=== PATIENT | male | born 1965 | race Caucasian/White ===

== ENCOUNTER 2018-04-19 01:10 | Outpatient (CLI) | payer BC, SELFPAY ==
[2018-04-19 07:35] LABS: Abs Immature Grans 0.01 k/cumm (0.0-0.09); Absolute Basophil Count 0.03 k/cumm (0.0-0.2); Absolute Lymphocyte Count 1.73 k/cumm (1.2-3.4); Absolute Monocyte Count 0.41 k/cumm (0.11-0.7); Absolute Neutrophil Count 2.56 k/cumm (1.2-6.7); Basophils % 0.6; HGB 14.6 g/dL (13.5-17.5); Immature Grans % 0.2; Mean Corp. HGB Concentration 34.8 g/dL (32.0-36.0); Mean Corpuscular Hemoglobin 32.5 pg (27.0-33.0); Mean Corpuscular Volume 93.5 fL (80-95); Mean Platelet Volume 10.6 fL (8.0-11.0); Monocytes % 8.3; Neutrophils % 51.9; Platelet Count 193 x1000/uL (130-400); RBC 4.49 m/cumm (4.50-6.00); RBC Distribution Width 12.4 % (11.8-14.1); White Blood Cell Count 4.94 k/cumm (4.4-10.8)
[2018-04-19 08:33] LABS: ALT 30 U/L (12-78); AST 16 U/L (15-37); Albumin 3.8 g/dL (3.4-5.0); Alkaline Phosphatase 55 U/L (46-116); C-Reactive Protein 0.07 mg/dL (0.0-0.3); CREATININE 1.16 mg/dL (0.70-1.30)
== END 2018-04-19 01:30 ==
PROVIDERS: PCP Family Medicine; Visit Provider Internal Medicine Rheumatology
DX: L40.59 Other psoriatic arthropathy (principal); Z79.899 Other long term (current) drug therapy
CPT/HCPCS: 36415; 82040; 82565; 84075; 84450; 84460; 85025; 86140

== ENCOUNTER 2018-11-18 16:06 | Outpatient (CLI) | payer BC, SELFPAY ==
[2018-11-18 16:40] LABS: Abs Immature Grans 0.01 k/cumm (0.0-0.09); Absolute Basophil Count 0.02 k/cumm (0.0-0.2); Absolute Eosinophil Count 0.15 k/cumm (0.0-0.7); Absolute Lymphocyte Count 1.74 k/cumm (1.2-3.4); Absolute Monocyte Count 0.44 k/cumm (0.11-0.7); Absolute Neutrophil Count 5.04 k/cumm (1.2-6.7); Basophils % 0.3; HCT 40.9 % (40.0-50.0); HGB 14.1 g/dL (13.5-17.5); Immature Grans % 0.1; Lymphocytes % 23.5; Mean Corp. HGB Concentration 34.5 g/dL (32.0-36.0); Mean Corpuscular Hemoglobin 32.6 pg (27.0-33.0); Mean Corpuscular Volume 94.7 fL (80-95); Mean Platelet Volume 10.3 fL (8.0-11.0); Monocytes % 5.9; Neutrophils % 68.2; Platelet Count 203 x1000/uL (130-400); RBC 4.32 m/cumm (4.50-6.00); RBC Distribution Width 12.9 % (11.8-14.1)
[2018-11-18 17:20] LABS: ALT 33 U/L (12-78); AST 15 U/L (15-37); Albumin 3.8 g/dL (3.4-5.0); Alkaline Phosphatase 53 U/L (46-116); Anion Gap 10.9 mmol/L (3-11); BUN 15 mg/dL (7-18); Bilirubin, Total 0.7 mg/dL (0.2-1.0); C-Reactive Protein 0.13 mg/dL (0.0-0.3); CO2 27.1 mmol/L (21.0-32.0); CREATININE 1.01 mg/dL (0.70-1.30); Calcium 8.9 mg/dL (8.5-10.1); Chloride 101 mmol/L (98-107); Glucose 98 mg/dL (70-100); Sodium 139 mmol/L (136-145); Total Protein 6.9 g/dL (6.4-8.2)
== END 2018-11-18 16:26 ==
PROVIDERS: PCP Family Medicine; Visit Provider Internal Medicine Rheumatology
DX: L40.50 Arthropathic psoriasis, unspecified (principal)
CPT/HCPCS: 36415; 80053; 85025; 86140

== ENCOUNTER 2019-06-06 13:12 | Outpatient (CLI) | payer BC, SELFPAY ==
[2019-06-06 16:02] LABS: Abs Immature Grans 0.02 k/cumm (0.0-0.09); Absolute Basophil Count 0.02 k/cumm (0.0-0.2); Absolute Lymphocyte Count 1.62 k/cumm (1.2-3.4); Absolute Monocyte Count 0.42 k/cumm (0.11-0.7); Absolute Neutrophil Count 4.62 k/cumm (1.2-6.7); Basophils % 0.3; Eosinophils % 2.9; HCT 41.6 % (40.0-50.0); HGB 14.7 g/dL (13.5-17.5); Immature Grans % 0.3; Lymphocytes % 23.5; Mean Corp. HGB Concentration 35.3 g/dL (32.0-36.0); Mean Corpuscular Hemoglobin 32.9 pg (27.0-33.0); Mean Corpuscular Volume 93.1 fL (80-95); Mean Platelet Volume 9.9 fL (8.0-11.0); Monocytes % 6.1; Neutrophils % 66.9; Platelet Count 201 x1000/uL (130-400); RBC 4.47 m/cumm (4.50-6.00); RBC Distribution Width 12.7 % (11.8-14.1)
[2019-06-06 17:16] LABS: ALT 25 U/L (16-63); AST 13 U/L (15-37); Alkaline Phosphatase 51 U/L (46-116); C-Reactive Protein 0.05 mg/dL (0.0-0.3); CREATININE 1.13 mg/dL (0.70-1.30)
== END 2019-06-06 13:32 ==
PROVIDERS: PCP Family Medicine; Visit Provider Internal Medicine Rheumatology
DX: L40.59 Other psoriatic arthropathy (principal); Z79.899 Other long term (current) drug therapy
CPT/HCPCS: 36415; 82040; 82565; 84075; 84450; 84460; 85025; 86140